=== PATIENT | female | born 1945 ===

== ENCOUNTER 2017-10-31 08:07 | Emergency (ER) | payer MEDICARE ==
[2017-10-31 08:07] VITALS: BMI 35.2
[2017-10-31] MEDS ORDERED: Sodium Chloride 0.9% 1,000 ML IV ONE (08:59)
[2017-10-31] MEDS ORDERED: Sodium Chloride 0.9% 1,000 ML ONE (09:06)
[2017-10-31 09:21] LABS: BASO % 0.7 % (0.0-2.0); EOS # 0.1 K/uL (0.0-0.7); EOS % 1.6 % (0.0-4.0); HEMOGLOBIN 12.4 g/dL (11.0-16.0); LYMPH # 1.1 K/uL (1.0-4.3); MEAN CELL VOLUME 90.5 fL (81.0-99.0); MEAN CORPUSCULAR HGB CONC 34.3 g/dL (33.0-37.0); MEAN PLATELET VOLUME 7.3 fL (7.2-11.7); MONO # 0.8 K/uL (0.0-0.8); MONO % 14.7 % (0.0-10.0); NEUT # 3.4 K/uL (1.8-7.0); WHITE BLOOD COUNT 5.4 K/uL (4.8-10.8)
--- NOTE | 2017-10-31 09:34 | C.PDOC ---
History Of Present Illness 72 y/o female presents to the ER complaining of abdominal pain, nausea, and vomiting which has been present for the past few days. Patient states that she has hx of hernia surgery performed by performed 1 year ago. Patient reprts that she was evalated by Dr Talavera a few days ago and given medications for the pain without relief. Denies having dysuria,hematuria, fever , and chillls. Time Seen by Provider: 10/31/17 08:09 Chief Complaint (Nursing): Abdominal Pain History Per: Patient History/Exam Limitations: no limitations Onset/Duration Of Symptoms: Days Current Symptoms Are (Timing): Still Present Severity: Moderate Radiation Of Pain To:: None Associated Symptoms: Nausea, Vomiting Alleviating Factors: None Last Bowel Movement: Today Recent travel outside of the [place]: No Additional History Per: Patient, Family Past Medical History Reviewed: Historical Data, Nursing Documentation, Vital Signs Vital Signs: Last Vital Signs Temp 98.8 F 10/31/17 11:51 Pulse 90 10/31/17 11:51 Resp 18 10/31/17 12:15 BP 133/83 10/31/17 11:51 Pulse Ox 96 10/31/17 12:02 - Medical History PMH: Colonic Polyps, Gastritis, HTN, Hypercholesterolemia Denies: Chronic Kidney Disease Surgical History: Cholecystectomy, Endoscopy Family History: States: No Known Family Hx - Social History Hx Alcohol Use: No Hx Substance Use: No Review Of Systems Except As Marked, All Systems Reviewed And Found Negative. Constitutional: Negative for: Fever, Chills Gastrointestinal: Positive for: Nausea, Vomiting, Abdominal Pain. Negative for : Diarrhea Genitourinary: Negative for: Dysuria, Hematuria Physical Exam - Physical Exam Appears: Non-toxic, No Acute Distress Skin: Normal Color, Warm, Dry Head: Atraumatic, Normacephalic Eye(s): bilateral: Normal Inspection Nose: Normal Oral Mucosa: Moist Throat: Normal Neck: Normal, Supple Chest: Symmetrical Cardiovascular: Rhythm Regular Respiratory: Normal Breath Sounds, No Rales, No Rhonchi, No Wheezing Gastrointestinal/Abdominal: Soft, Tenderness (tenderness around periumbilical regio), Hernia (? hernia to lower abdomen) Extremity: Normal ROM Neurological/Psych: Oriented x3, Normal Speech ED Course And Treatment - Laboratory Results Result Diagrams: 10/31/17 09:14 10/31/17 09:14 Lab Interpretation: Normal ECG: Interpreted By [place] ECG Rhythm: Sinus Rhythm ECG Interpretation: Normal Rate From EC O2 Sat by Pulse Oximetry: 96 (RA) Pulse Ox Interpretation: Normal - CT Scan/US No standard instances CT/US Interpretation: FINDINGS: LOWER THORAX: Limited linear atelectasis in the bilateral lung bases as well as dependent atelectasis. No pleural or pericardial effusion. Cardiomegaly is stable. LIVER: Unenhanced liver appears stable. No suspicious findings. GALLBLADDER AND BILE DUCTS: Prior cholecystectomy reiterated. PANCREAS: Mild pancreatic atrophy reiterated the pancreas appearing nonfocal grossly. A duodenal diverticulum is air and fluid filled approaching the junction of the 2nd and 3rd portions of the duodenum once again. SPLEEN: Unremarkable. ADRENALS: Unremarkable. No mass. KIDNEYS AND URETERS: No obstructive uropathy is appreciated once again although a likely hyperdense cyst is again seen the mid to lower pole left kidney. Initial hyperdense cyst seen exophytic off the lower pole right kidney. There is a stable exophytic lesion measuring 2.5 cm off the upper midpole right kidney measuring 25 Hounsfield units. This may represent a complex cyst or stable solid lesion. Consider repeat ultrasound for additional characterization. A right renal cyst is not clearly identified here nor any other exophytic lesion on prior renal ultrasound 01/31/2017. VASCULATURE: 1.9 cm calcified splenic artery aneurysm is stable with minimally atherosclerotic but non aneurysmal abdominal aorta identified. BOWEL: Stomach is collapsed. Evaluation of the gastrointestinal tract is limited due the lack of oral contrast administration. No bowel obstruction, pericolic or perienteric reaction identified. APPENDIX: Appendix not identified bridges a CT evidence of appendicitis. PERITONEUM: Unremarkable. No free fluid. No free air. LYMPH NODES: Unremarkable. No enlarged lymph nodes. BLADDER: Neobladder appears stable in appearance. REPRODUCTIVE: Prior hysterectomy. BONES: No acute fracture. OTHER FINDINGS: None. IMPRESSION: 1. No definite acute abdominal or pelvic findings. 2. Stable 2.5 cm mildly hyperdense cyst or solid lesion upper midpole right kidney. Follow-up renal ultrasonography advised to identify this structure and further evaluate. Likely hyperdense cysts are identified at the bilateral lower poles once again. 3. Duodenal diverticulum again evident. 4. Calcified splenic artery aneurysm reiterated 1.9 cm greatest dimension. 5. Prior hysterectomy reiterated. Progress Note: FINDINGS: LOWER THORAX: Limited linear atelectasis in the bilateral lung bases as well as dependent atelectasis. No pleural or pericardial effusion. Cardiomegaly is stable. LIVER: Unenhanced liver appears stable. No suspicious findings. GALLBLADDER AND BILE DUCTS: Prior cholecystectomy reiterated. PANCREAS: Mild pancreatic atrophy reiterated the pancreas appearing nonfocal grossly. A duodenal diverticulum is air and fluid filled approaching the junction of the 2nd and 3rd portions of the duodenum once again. SPLEEN: Unremarkable. ADRENALS: Unremarkable. No mass. KIDNEYS AND URETERS: No obstructive uropathy is appreciated once again although a likely hyperdense cyst is again seen the mid to lower pole left kidney. Initial hyperdense cyst seen exophytic off the lower pole right kidney. There is a stable exophytic lesion measuring 2.5 cm off the upper midpole right kidney measuring 25 Hounsfield units. This may represent a complex cyst or stable solid lesion. Consider repeat ultrasound for additional characterization. A right renal cyst is not clearly identified here nor any other exophytic lesion on prior renal ultrasound 01/31/2017. VASCULATURE: 1.9 cm calcified splenic artery aneurysm is stable with minimally atherosclerotic but non aneurysmal abdominal aorta identified. BOWEL: Stomach is collapsed. Evaluation of the gastrointestinal tract is limited due the lack of oral contrast administration. No bowel obstruction, pericolic or perienteric reaction identified. APPENDIX: Appendix not identified bridges a CT evidence of appendicitis. PERITONEUM: Unremarkable. No free fluid. No free air. LYMPH NODES: Unremarkable. No enlarged lymph nodes. BLADDER: Neobladder appears stable in appearance. REPRODUCTIVE: Prior hysterectomy. BONES: No acute fracture. OTHER FINDINGS: None. IMPRESSION: 1. No definite acute abdominal or pelvic findings. 2. Stable 2.5 cm mildly hyperdense cyst or solid lesion upper midpole right kidney. Follow-up renal ultrasonography advised to identify this structure and further evaluate. Likely hyperdense cysts are identified at the bilateral lower poles once again. 3. Duodenal diverticulum again evident. 4. Calcified splenic artery aneurysm reiterated 1.9 cm greatest dimension. 5. Prior hysterectomy reiterated. Reassessment Condition: Improved Medical Decision Making Medical Decision Making: Plan: --Labs --UA --CT - Abd & Pelv. -- IV Fluids --Zofran IV Disposition Counseled Patient/Family Regarding: Studies Performed, Diagnosis, Need For Followup - Disposition Referrals: Deanna Larson MD [Staff Provider] - Disposition: HOME/ ROUTINE Disposition Time: 12:15 Condition: STABLE Additional Instructions: Follow up with your PMD for further evaluation Prescriptions: Ondansetron ODT [Zofran ODT] 1 odt PO BID PRN #6 odt PRN Reason: Nausea/Vomiting Instructions: Acute Abdomen (Belly Pain) Forms: [employer] (Togolese) - POA Present On Arrival: None - Clinical Impression Clinical Impression: Abdominal pain - PA / REGIONAL EDUCATION MANAGER / Resident Statement MD/DO has reviewed & agrees with the documentation as recorded. - Scribe Statement The provider has reviewed the documentation as recorded by the Lucy Zurita Provider Attestation All medical record entries made by the Christopheribe were at my direction and personally dictated by me. I have reviewed the chart and agree that the record accurately reflects my personal performance of the history, physical exam, medical decision making, and the department course for this patient. I have also personally directed, reviewed, and agree with the discharge instructions and disposition.
[2017-10-31 09:45] LABS: SQUAMOUS EPITHIAL < 1 /hpf (0-5); URINE BACTERIA RARE (<OCC); URINE BILIRUBIN NEGATIVE (NEGATIVE); URINE BLOOD NEGATIVE (NEGATIVE); URINE CLARITY Clear (Clear); URINE COLOR Straw (YELLOW); URINE GLUCOSE (UA) NORMAL (Normal); URINE LEUKOCYTE ESTERASE TRACE Leu/uL (Negative); URINE PROTEIN NEGATIVE (NEGATIVE); URINE UROBILINOGEN NORMAL mg/dL (0.2-1.0)
[2017-10-31 09:56] LABS: ALB/GLOB RATIO 1.6 (1.0-2.1); ALBUMIN 3.9 g/dL (3.5-5.0); ALT/SGPT 44 U/L (9-52); AST/SGOT 24 U/L (14-36); BLOOD UREA NITROGEN 24 mg/dL (7-17); GFR NON-AFRICAN AMERICAN > 60; LIPASE 107 U/L (23-300)
--- NOTE | 2017-10-31 10:54 | CT ---
Date of service: 10/31/2017 PROCEDURE: CT Abdomen and Pelvis without intravenous contrast HISTORY: Pain COMPARISON: Abdomen pelvis CT without contrast 12/16/2016. TECHNIQUE: Helical CT of the abdomen and pelvis was performed without oral or intravenous contrast as per referring physician request. Coronal and sagittal reformats were generated. Contrast dose: None Radiation dose: Total exam DLP = 1014.88 mGy-cm. This CT exam was performed using one or more of the following dose reduction techniques: Automated exposure control, adjustment of the mA and/or kV according to patient size, and/or use of iterative reconstruction technique. FINDINGS: LOWER THORAX: Limited linear atelectasis in the bilateral lung bases as well as dependent atelectasis. No pleural or pericardial effusion. Cardiomegaly is stable. LIVER: Unenhanced liver appears stable. No suspicious findings. GALLBLADDER AND BILE DUCTS: Prior cholecystectomy reiterated. PANCREAS: Mild pancreatic atrophy reiterated the pancreas appearing nonfocal grossly. A duodenal diverticulum is air and fluid filled approaching the junction of the 2nd and 3rd portions of the duodenum once again. SPLEEN: Unremarkable. ADRENALS: Unremarkable. No mass. KIDNEYS AND URETERS: No obstructive uropathy is appreciated once again although a likely hyperdense cyst is again seen the mid to lower pole left kidney. Initial hyperdense cyst seen exophytic off the lower pole right kidney. There is a stable exophytic lesion measuring 2.5 cm off the upper midpole right kidney measuring 25 Hounsfield units. This may represent a complex cyst or stable solid lesion. Consider repeat ultrasound for additional characterization. A right renal cyst is not clearly identified here nor any other exophytic lesion on prior renal ultrasound 01/31/2017. VASCULATURE: 1.9 cm calcified splenic artery aneurysm is stable with minimally atherosclerotic but non aneurysmal abdominal aorta identified. BOWEL: Stomach is collapsed. Evaluation of the gastrointestinal tract is limited due the lack of oral contrast administration. No bowel obstruction, pericolic or perienteric reaction identified. APPENDIX: Appendix not identified bridges a CT evidence of appendicitis. PERITONEUM: Unremarkable. No free fluid. No free air. LYMPH NODES: Unremarkable. No enlarged lymph nodes. BLADDER: Neobladder appears stable in appearance. REPRODUCTIVE: Prior hysterectomy. BONES: No acute fracture. OTHER FINDINGS: None. IMPRESSION: 1. No definite acute abdominal or pelvic findings. 2. Stable 2.5 cm mildly hyperdense cyst or solid lesion upper midpole right kidney. Follow-up renal ultrasonography advised to identify this structure and further evaluate. Likely hyperdense cysts are identified at the bilateral lower poles once again. 3. Duodenal diverticulum again evident. 4. Calcified splenic artery aneurysm reiterated 1.9 cm greatest dimension. 5. Prior hysterectomy reiterated.
[2017-10-31 11:52] VITALS: BP 133/83; PULSE 90; TEMP 98.8
[2017-10-31 12:01] VITALS: O2SAT 96
[2017-10-31 12:15] VITALS: RESP 18
--- NOTE | 2017-11-04 08:25 | CARD ---
APPROVED REPORT Date of service: 10/31/2017 EKG Measurement Heart [id number] <Conclusion> Normal sinus rhythm Normal ECG
== END 2017-10-31 12:15 | disposition home or self-care (01) ==
LOC: C.ER 08:07
DX: R10.33 Periumbilical pain (principal)
CPT/HCPCS: 74176; 80053; 81001; 83690; 85025; 93005; 96361; 96374; 99284; J2405; J7030